=== PATIENT | male | born 1970 | race African-American/Black ===

== ENCOUNTER 2024-05-18 13:31 | Emergency (ER) | payer MEDICAID, SELFPAY ==
--- NOTE | ~2024-05-18 | XR_ITS ---
CLINICAL HISTORY: fall, diffuse tenderness 5 view left knee Comparison: None Findings: Bones intact. No dislocations. Mild tricompartmental joint space narrowing. No joint effusion. No radiopaque foreign body. IMPRESSION: No acute fracture, dislocation or significant joint effusion. This document has been electronically signed by: Swetha Yap DO on 05/18/2024 16:02:07
--- NOTE | 2024-05-18 13:51 | ED.GENADULT ---
HPI - General Adult General Chief complaint: Extremity Injury, Lower Stated complaint: knee inj Time Seen by Provider: 05/18/24 15:06 Source: patient Mode of arrival: ambulatory Limitations: no limitations History of Present Illness ED Provider: PABLO SOLOMON HPI narrative: 53 year old male presents to the ED today for evaluation of left knee pain s/p mechanical fall this morning. Reports losing his balance, which often occurs secondary to chronic back pain. Denies any symptoms preceding the fall. Admits to falling directly onto his left knee. Patient was able to stand, ambulate, and bring himself to the ED following fall. Admits to pain along the outer aspect of the left knee with some discomfort on flexion the knee. Ambulating with limping gait. He did not trial anything for his pain. Reports his pain is only responsive to oxycodone. Denies numbness/tingling/weakness of the left lower extremity. Denies headache, dizziness. Denies saddle anesthesia, bowel or bladder incontinence or retention. No history of IV drug use. No history of spinal surgery. Related Data Allergies Allergy/AdvReac Type Severity Reaction Status Date / Time acetaminophen [ACETAMINOPHEN] Allergy Unknown NAUSEA & Verified 05/18/24 13:54 VOMITING bee pollen [BEE STINGS] Allergy Unknown ANAPHYLAXIS Verified 05/18/24 13:54 clonidine [CLONIDINE] Allergy Unknown UNKNOWN Verified 05/18/24 13:54 hydrocodone [From VICODIN] Allergy Unknown HIVES Verified 05/18/24 13:54 ibuprofen [From MOTRIN] Allergy Unknown ANAPHYLAXIS Verified 05/18/24 13:54 naproxen [NAPROXEN] Allergy Unknown NAUSEA & Verified 05/18/24 13:54 VOMITING peanut [PEANUT] Allergy Unknown ANAPHYLAXIS Verified 05/18/24 13:54 Review of Systems Review of Systems: Yes all other systems are reviewed and are negative PMFSH Past Medical History Attestation statement: The following information was validated with the patient. Source: old records reviewed and nursing notes reviewed Social History Social History Advance Directives: No Advance Directives Information Provided: No Physical Exam ED Vital Signs: Vital Signs - 24 hr 05/18/24 16:25 05/18/24 17:17 Temperature 98.3 F 98.3 F Pulse Rate 68 68 Respiratory Rate 18 18 Blood Pressure 101/60 101/60 Pulse Oximetry 99 99 Oxygen Delivery Method Room Air Room Air BMI result Body Mass Index 21.7 vital signs stable, afebrile General: Well appearing, in no acute distress. Skin: Warm, dry, intact. No rashes or lesions. Head: Normocephalic, atraumatic. no palpable skull fracture or hematoma. EENT: Hearing is intact b/l. Conjunctiva clear. PERRLA. EOM intact. Moist mucous membranes.? Neck: Supple without LAD Cardiac: Chest wall symmetric. RRR Lungs: Normal respiratory effort without accessory muscle use. CTA bilaterally Back: No midline spinous or paraspinal tenderness. No step off deformity. Ext: +left knee without overlying skin changes, swelling or deformity. Slightly tender to palpation of lateral aspect of left knee without palpable deformity or crepitus. Full ROM intact to left knee with minimal discomfort on flexion. Patellar tendon and quadricepts tendon intact. 2+ popliteal, DP and PT pulses intact. Neuro: AOx3. Normal speech. Strength 5/5 intact throughout. No saddle anesthesia. Sensation intact to light touch. NV intact distally. Ambulating with slight limping gait. Course Course Course Narrative: This is a rapid medical exam performed by Dov Hollingsworth NP: Additional HPI, ROS, PE not included below will be deferred to primary provider. 05/18/24 13:51 Patient is a 53-year-old male with history of chronic back pain presenting to the ED with complaint of left knee pain after a fall this morning. Reports he lost his balance which happens occasionally due to his prior back surgeries. Denies head strike or LOC. Plan: xray Reevaluation(s) Reevaluation #1: X-ray without fracture or joint effusion. There is mild tricompartmental joint space narrowing. unlikely ligament/ tendon injury. Patient tells me oxycodone is the only thing that works for him. He has multiple allergies to pain medications. Likely knee contusion which does not warrant treatment with opioid pain medications. MUKUL wrap applied to knee. Educated on RICE therapy. Patient has remained stable throughout ED visit today. Discussed worrisome signs and symptoms and when to return to the ED. All questions answered at this time. Patient is agreeable with disposition and stable for discharge. Procedures Orthopedic Splinting/Casting Injury #1: Side: left Lower Extremity Injury Location: knee Lower Extremity Immobilizer: Mukul wrap Medical Decision Making Medical Decision Making MDM Narrative: 53 year old male presents to the ED today for evaluation of left knee pain s/p mechanical fall this morning. Vital signs stable. He is nontoxic appearing in no acute distress. On my initial exam, he appears to be under the influence of substances. sleepy however arousable to verbal stimuli. unclear what he has in his system. on exam, left knee without overlying skin changes, swelling or deformity. Slightly tender to palpation of lateral aspect of left knee without palpable deformity or crepitus. Full ROM intact to left knee with minimal discomfort on flexion. Patellar tendon and quadricepts tendon intact. 2+ popliteal, DP and PT pulses intact. nv intact distally. ambulating with slight limping gait. Differential diagnosis includes arthritis, contusion. Lower suspicion for fracture, bursitis, tendonitis. Unlikely dislocation, Zuleta's cyst, ligament/tendon injury. Presentation not consistent with gout, pseudogout, Lyme arthritis or septic joint. Plan for xrs and re-evaluation. Differential Diagnosis Differential Diagnoses: The differential diagnosis associated with the presentation includes as above. Admission/Observation not indicated. Independent Interpretation I performed an independent interpretation of an: Plain X-Ray Interpretation: xt left knee without fracture Radiology Impression Discussion of test interpretation with radiology: I have reviewed the radiologist's reading. Radiologist Impression: Procedure(s): XR knee LT 4V Accession Number(s): [id number] cc: Physician,None ; Carmina Hollingsworth CONTR[employer]S ENGINEER~ CLINICAL HISTORY: fall, diffuse tenderness 5 view left knee Comparison: None Findings: Bones intact. No dislocations. Mild tricompartmental joint space narrowing. No joint effusion. No radiopaque foreign body. IMPRESSION: No acute fracture, dislocation or significant joint effusion. This document has been electronically signed by: Swetha Yap DO on 05/18/2024 16:02:07 Social Determinants Patient?s care significantly limited by Social Determinants of Health including: Other Social Determinant of Health Critical Care Time Critical Care Time Critical Care Time: No Discharge Plan Discharge Clinical Impression: Contusion of left knee Patient Disposition: Home, Self-Care Instructions: Contusion in Adults (ED), R.I.C.E. Treatment (ED) Additional Instructions: The xray of your left knee if normal. There is no fracture. Rest, ice, compress, and elevate your left knee. Return to the ED with any new or worsening symptoms. In the case of an emergency call 911. Referrals: Physician,None [Primary Care Provider] - Interventions: ED Discharge Assessment Last Done: 05/18/24 17:17 Discharge Date/Time: 05/18/24 17:22 Print Language: Bahamian
[2024-05-18 13:53] VITALS: BP 121/59; PULSE 93; RESP 18; TEMP 37.1; O2SAT 97; BMI 21.7
[2024-05-18 15:07] VITALS: BP 118/68; PULSE 82; RESP 18; TEMP 36.9; O2SAT 97
[2024-05-18 16:25] VITALS: BP 101/60; PULSE 68; RESP 18; TEMP 36.8; O2SAT 99
[2024-05-18 17:17] VITALS: BP 101/60; PULSE 68; RESP 18; TEMP 36.8; O2SAT 99
== END 2024-05-18 17:22 | disposition home or self-care (01) ==
PROVIDERS: Emergency Provider Emergency Medicine
DX: S80.02XA Contusion of left knee, initial encounter (principal); W19.XXXA Unspecified fall, initial encounter; Y93.9 Activity, unspecified; Y92.9 Unspecified place or not applicable; Y99.9 Unspecified external cause status; M25.562 Pain in left knee; G89.29 Other chronic pain
CPT/HCPCS: 73564; 99283

== ENCOUNTER → 2024-05-18 13:54 | Outpatient (BNV) | payer MEDICAID, SELFPAY | PROVIDERS: Emergency Provider Emergency Medicine; Visit Provider Radiology Diagnostic Radiology | DX: M25.562 Pain in left knee (principal); W19.XXXA Unspecified fall, initial encounter | CPT/HCPCS: 73564 ==